=== PATIENT | male | born 1955 | race African-American/Black ===

== ENCOUNTER 2017-01-27 01:03 | Inpatient (IN) | payer OTHER ==
[~2017-01-27] VITALS: Ht 170.2 cm; Wt 96.5 kg
[2017-01-27] VITALS (8 sets, daily range): BP systolic 117–182; BP diastolic 70–106
[~2017-01-27 01:03] MED LIST: ALPR0.5T11 PO; ASPI-860 PO; CLPD75T PO; INSU100V32 SC; LSNP10T PO; METF500T4 PO; NO HOME MEDICATIONS; NO LIST; SMV10T PO
--- OUTSIDE RECORDS SUMMARY | 2017-01-27 01:08 | XMS REPORT | Continuity of Care Document ---
Author Author [facility] Address Unknown Phone Unavailable Allergies Active Description Code Type Severity Reaction Onset Reported/Identified Relationship to Patient Clinical Status Yes No Known Drug Allergies [id number] Drug Allergy Unknown N/ A 12/01/2013 Medications Problems Date Dx Coded Attending Type Code Diagnosis Diagnosed By 12/01/2013 BALAJI FAUST MD R Ot 250.00 12/01/2013 BALAJI FAUST MD Ot 401.9 12/01/2013 BALAJI FAUST MD Ot 434.91 12/01/2013 BALAJI FAUST MD R Ot 729.89 12/01/2013 BALAJI FAUST MD Ot V15.82 12/01/2013 BALAJI FAUST MD Ot V58.67 05/12/2014 CORTEZ DAN, CHRISTY L Ot 727.09 05/12/2014 CORTEZ DAN, CHRISTY L Ot 729.5 05/08/2015 BALAJI FAUST MD Ot 434.91 05/09/2015 KAT DAN, EMI Ramos Ot 250.00 DIAB JUAN DIEGO WO COMPL, TYPE II OR UNSPEC TY 05/09/2015 EMI STEPHENS MD Ot 401.9 HYPERTENSION NOS 05/09/2015 EMI STEPHENS MD Ot 438.89 OTH LATE EFFECT-CEREBROVASCULAR DISEASE 05/09/2015 EMI STEPHENS MD Ot 729.89 MUSCSKEL SYMPT LIMB NEC 05/09/2015 EMI STEPHENS MD Ot V58.67 LONG-TERM (CURRENT) USE OF INSULIN 05/22/2015 BALAJI FAUST MD Ot 434.91 09/04/2016 Ot Z53.20 PROC/TRTMT NOT CRD OUT BEC PT DECISION F 09/08/2016 Ot Z53.20 PROC/TRTMT NOT CRD OUT BEC PT DECISION F Procedures Results Encounters ACCT No. Visit Date/Time Discharge Status Pt. Type Provider Facility Loc./Unit Complaint [id number] 05/09/2015 00:07:00 2014 20:01:00 DIS Inpatient KAT DAN, [facility] MED/SURG DX: LEFT LEG WEAKNESS [id number] 05/12/2014 00:59:00 2013 01:50:00 DIS Emergency CORTEZ DAN, [facility] ED [id number] 12/01/2013 23:24:00 2013 23:59:59 CLS Outpatient GOVIND DAN, [facility] EMS [id number] 12/01/2013 20:45:00 2013 23:23:00 DIS Emergency GOVIND DAN, [facility] ED [id number] 09/02/2016 11:57:00 ACT Outpatient [facility] EMS EMS REFUSAL
--- OUTSIDE RECORDS SUMMARY | 2017-01-27 01:11 | XMS REPORT | Continuity of Care Document ---
Author Author [facility] Address Unknown Phone Unavailable Allergies Active Description Code Type Severity Reaction Onset Reported/Identified Relationship to Patient Clinical Status Yes No Known Drug Allergies [id number] Drug Allergy Unknown N/ A 12/01/2013 Medications [...] Status Pt. Type Provider Facility Loc./Unit Complaint [id number] 05/09/2015 00:07:00 2014 20:01:00 DIS Inpatient KAT DAN, [facility] MED/SURG DX: LEFT LEG WEAKNESS [id number] 05/12/2014 00:59:00 2013 01:50:00 DIS Emergency CORTEZ DAN, [facility] ED [id number] 12/01/2013 23:24:00 2013 23:59:59 CLS Outpatient GOVIND DAN, [facility] EMS [id number] 12/01/2013 20:45:00 2013 23:23:00 DIS Emergency GOVIND DAN, [facility] ED [id number] 09/02/2016 11:57:00 ACT Outpatient [facility] EMS EMS REFUSAL
--- NOTE | 2017-01-27 01:24 | NUR ---
STATED ISN'T TAKING ANY OF HIS MEDS AT ALL. LAST TIME WAS 2-3 MO AGO, WAS ON PLAVIX FOR THE CVA AND INSULIN
[2017-01-27] MEDS ORDERED: SODIUM CHLORIDE FLUSH 3 ML SYR IV ONE (01:25)
[2017-01-27] MEDS ORDERED: NS IV 500 ML 500 ML IV SCH (01:25)
[2017-01-27] MEDS: SODIUM CHLORIDE FLUSH 10 ML SYR IV PRN ×2 (01:37→03:01)
--- NOTE | 2017-01-27 01:39 | NUR ---
[facility]
[2017-01-27] MEDS ORDERED: ATOR40TA59 PO (01:44)
[2017-01-27] MEDS ORDERED: METF500T4 PO (01:44)
[2017-01-27] MEDS ORDERED: INSU100V5 SC (01:44)
[2017-01-27] MEDS ORDERED: GLIP10TA13 PO (01:44)
[2017-01-27] MEDS ORDERED: LSNP20T PO (01:44)
[2017-01-27 01:56] LABS: BASOPHILS % (AUTO) 0 % (0-2); EOSINOPHILS # (AUTO) 0.1 10^3uL; EOSINOPHILS % (AUTO) 1 % (0-4); LYMPHOCYTES # (AUTO) 2.1 X10^3; MEAN CORPUSCULAR HGB CONC 33.3 g/dL (31.0-37.0); MEAN CORPUSCULAR VOLUME 81 FL (80-100); MEAN PLATELET VOLUME 11.9 FL (6.0-9.5); MONOCYTES # (AUTO) 0.9 X10^3; MONOCYTES % (AUTO) 10 % (3-11); NEUTROPHILS # (AUTO) 5.9 X10^3; NEUTROPHILS % (AUTO) 65 % (51-67); PLATELET COUNT 192 10^3uL (150-450); WHITE BLOOD COUNT 9.05 10^3uL (4.0-11.0)
[2017-01-27 02:03] LABS: ALKALINE PHOSPHATASE 127 U/L (38-126); ANION GAP 14.1 MEQ/L (3-15); BUN/CREATININE RATIO 13 (10-20)
[2017-01-27 02:04] LABS: ALBUMIN 4.4 g/dL (3.4-5.0); CALCULATED IONIZED CALCIUM 3.8 mg/dL (3.8-4.6); CREATINE KINASE 77 U/L (55-170); TOTAL PROTEIN 8.1 g/dL (6.4-8.5)
[2017-01-27] MEDS ORDERED: LABETALOL HCL 20 MG/4 ML VIAL IV ONE (02:50)
[2017-01-27] MEDS ORDERED: INSULIN LISPRO 1 UNIT/0.01 ML (HUMALOG) DOSE SC ONE (02:55)
[2017-01-27] MEDS ORDERED: DEXTROSE ORAL GEL (GLUTOSE 40%) 15 GM TUBE PO PRN ×2 (03:00→09:25)
[2017-01-27] MEDS ORDERED: ONDANSETRON 2 MG/ML (Z0FRAN) 2 ML VIAL IV PRN (03:00)
[2017-01-27] MEDS ORDERED: DEXTROSE 50% 25 GM/50 ML SYRINGE IV PRN ×2 (03:00→09:25)
[2017-01-27] MEDS ORDERED: ACETAMINOPHEN 325 MG TAB (TYLENOL) PO PRN (03:00)
[2017-01-27] MEDS ORDERED: GLUCAGON EMERGENCY 1 MG/KIT IM PRN ×2 (03:00→09:25)
[2017-01-27] MEDS ORDERED: LABETALOL HCL 20 MG/4 ML VIAL IV PRN (03:05)
--- NOTE | 2017-01-27 03:30 | NUR ---
Patient arrived via cart accompanied by Jessie MENDOZAtrackman, transferred to bed w/ cane and standby assist x 2, movement slow states trouble with movement of left lower extremity, speech slow and delayed at times, A&O x 3. Changed into gown, poor hygiene of person, provides own care at home with medication etc, respirations even non labored on room air. Continue with admission process, charted
[2017-01-27] MEDS ORDERED: lisINopril 20 MG (PRINIVIL) TABLET ONE (04:22)
--- NOTE | 2017-01-27 04:36 | History and Physical (E) ---
History & Physical CC: right leg weakness HPI: Patient is a 61 y/o male who has a history of a prior left sided CVA. The patient admits to medication non compliance and has not been taking his diabetic medications or anti hypertensive medications for the past several weeks. The patient saw the [facility] on 01/15 and his medications were re started. He has not received them in the mail yet. 2 hours prior to arrival to the ED the patient had onset of right leg weakness. The patient states that he felt as if he were having a stroke. Upon arrival to the ED his symptoms were resolved per his report. The patient has significantly hypertensive and was treated with lopresor IV. The CT head was unremarkable as was his lab work. At this time the patient will be admitted into the ICU for further management of his hypertensive emergency with TIA. A review of the medical records indicate that the patient had a very similar event in 2011. PMH: left sided CVA, HTN, DM2, dyslipidemia PSH; bilateral carpal tunnel repair SHx; , has girlfriend, no tobacco, no alcohol, retired, FHx: mother from multiple myelopma Meds: atorvastatin, glipizide,levemir,lisinipril,metformin, aspirin allergy: NKDA ROS never had a headache,no change in vision, no difficulty swallowing, no difficulty speaking, no neck or jaw pain, no chest pain, no shortness of breath , no cough, no abdomen pain, no nausea or vomiting, no change in BM, no urine symptoms, no increased edema, chronic left sided weakness which primarily affects left lower leg. left upper extremity has regained almost all function, no right leg or arm symptoms, never had paresthesia, 10 point ROS otherwise neg except for described above. PE: 177/118, pulse 70, rr16 sats 90% RA, afebrile WDWN male in mild distress alert and oriented x 4 EOMI, sclera non icteric, difficult to determine pupil reactivity but both appear symetrical neck supple, no jvd Lungs diminished but no wheezes Heart RRR no murmur abd is soft non tender per nursing ext with tr edema neuro examination strength left upper 4/5, left lower 2/5 right upper 4pluts/5 right lower 4/5 sensor grossly intact symmetrical Lab WBC 9, Hg 13.2 plt 192 INR 1.1 na 143, K 3.4 HCO3 27 BUN11 C.9 glucose 315 A1C 12.1 BAL 0, troponin .[address] head without acute changes pCXR no acute process Impression/Plan 1. TIA acute POA: right lower extremity affected. secondary to hypertension , see below, currently resolved. not on medications asa, statin, reassess in the am. will need to strongly consider MR of brain in the am with carotid US and echocardiogram. Even though precipitated by hypertensive there is a chance of a flow limiting lesion in carotid that need to be addressed. Admit to IcU with frequent neuor checks 2. HTN emergency acute POA: patient with neuro findings resolved. For now restart BURT inhibitor. IV b debi prn SBP greater than 180 of DBP greater than 90. Need not to drop blood pressure greatly or will precipitate additional neurological events. 3. DM2 chronic POA: poor control as represented by elevated A1C. correctional plan overnight and restart home meds in the am. 4. hypokalemia acute POA: replace and recheck 5. dyslipidemia chronic POA: continue statin and check fasting lipid panel 6. DVT ppx; SCD full inpatient admission to ICU. Allergies/Home Medications Allergies: Coded Allergies: No Known Drug Allergies (Unverified , 12/01/13) Reported Home Medications Scheduled Aspirin (Aspirin) 81 MG PO DAILY (Reported) Atorvastatin Calcium (Atorvastatin Calcium) 20 MG PO HS (Reported) Glipizide (Glipizide) 10 MG PO BID (Reported) Insulin Detemir (Levemir) 30 UNIT SC BID (Reported) Lisinopril (Lisinopril) 10 MG PO DAILY (Reported) Metformin HCl (Metformin HCl) 1,000 MG PO BID (Reported) Discontinued Medications Alprazolam (Alprazolam) 0.5 MG PO QID (Reported) Discontinued Reason: Update list Clopidogrel Bisulfate (Clopidogrel) 75 MG PO DAILY Discontinued Reason: Update list Insulin Glargine,Hum.rec.anlog (Lantus) 20 UNIT SC HS Discontinued Reason: Update list Lisinopril (Lisinopril) 10 MG PO BID (Reported) Discontinued Reason: Dose changed Metformin HCl (Metformin HCl) 500 MG PO BID (Reported) Discontinued Reason: Update list Simvastatin (Simvastatin) 10 MG PO HS Discontinued Reason: Update list Copies to: End of Report . SHANNON ASTORGA MD January 27, 2017 04:36
--- NOTE | 2017-01-27 06:19 | Diagnostic Imaging Report ---
PROCEDURE: CT head without contrast. TECHNIQUE: Multiple contiguous axial images were obtained through the brain without the use of intravenous contrast. INDICATION: Right leg weakness. COMPARISON STUDIES: CT scan of the head from 05/08/15. FINDINGS: Examination demonstrates minimal atrophy. No mass effect, midline shift, hemorrhage or extra-axial fluid collections are present. An old lacunar infarct is seen in the right side in the region of the posterior limb of the internal capsule or possibly the anterior aspect of the thalamus. Bone windows demonstrate normal ossification. No fluid is seen in the mastoid air cells or visualized portions of the paranasal sinuses. Some microcalcifications are seen in the subcutaneous tissues of the forehead probably from Botox injections. IMPRESSION: 1. No acute findings are present. 2. An old lacunar infarct is present with minimal atrophy. Dictated by: Dictated on workstation # [id number]
--- NOTE | 2017-01-27 06:43 | Diagnostic Imaging Report ---
INDICATION: Right leg weakness. COMPARISON: 05/08/2015. FINDINGS: Single view examination of the chest fails to reveal evidence of active parenchymal pathology or pleural effusion. The cardiac silhouette is normal. IMPRESSION: Negative chest. No significant change since previous exam. Dictated by: Dictated on workstation # [id number]
--- NOTE | 2017-01-27 06:45 | NUR ---
Sitting up in bed - "I feel better in my R leg than when I came in" - reports slept poor "I am normally a night person"
[2017-01-27] MEDS: PANTOPRAZOLE 40 MG (PROTONIX) TAB PO SCH (06:51)
[2017-01-27 06:57] LABS: BASOPHILS % (AUTO) 0 % (0-2); EOSINOPHILS # (AUTO) 0.2 10^3uL; EOSINOPHILS % (AUTO) 2 % (0-4); LYMPHOCYTES # (AUTO) 2.1 X10^3; MEAN CORPUSCULAR HEMOGLOBIN 27.3 PG (26.0-34.0); MEAN CORPUSCULAR HGB CONC 33.4 g/dL (31.0-37.0); MEAN CORPUSCULAR VOLUME 82 FL (80-100); MEAN PLATELET VOLUME 11.9 FL (6.0-9.5); MONOCYTES # (AUTO) 0.9 X10^3; MONOCYTES % (AUTO) 10 % (3-11); NEUTROPHILS # (AUTO) 5.9 X10^3; NEUTROPHILS % (AUTO) 65 % (51-67); PLATELET COUNT 194 10^3uL (150-450); WHITE BLOOD COUNT 9.03 10^3uL (4.0-11.0)
[2017-01-27 07:07] LABS: ANION GAP 14.3 MEQ/L (3-15)
[2017-01-27] MEDS ORDERED: INSULIN LISPRO 1 UNIT/0.01 ML (HUMALOG) DOSE SC SCH (07:30)
--- NOTE | 2017-01-27 07:30 | NUR ---
See ICU assessment --> HX of stroke affecting L leg walks c cane - "My R leg started feeling like I was having a stroke, so I came to the ED" - reports did not take po meds for approx 5-6 months "I was on vacation in [place]" - unkept, strong body odor, copious amounts of dry flaking skin
--- NOTE | 2017-01-27 07:45 | NUR ---
Up to chair for breakfast - very slow process - patient able to complete all movement by himself - talks slowly - "I don't have any pain" "I'd love a cup of coffee"
--- NOTE | 2017-01-27 08:28 | NUR ---
NUTRITION ASSESSMENT Level 1 Patient: Carrington Larsen Age/Sex: 61/M Date Screened: 01-27-17 Weight: 211.2#/96 kg Height: 67 inches Primary Diagnosis: TIA Diet Order: small diabetic Relevant labs: glucose 145 (admitted with 315), Hgb A1c 12.1, triglycerides 107, cholesterol 200, LDL 139, HDL 40, TSH 0.82 Food allergies: N Nutrition Assessment Criteria Age over 80: N Body Mass Index (BMI) under 19: N Admission Screening Indicates Risk? 3 points Moderate/High Risk Diagnosis: 3 points TPN or PPN: N NPO or clear liquid diet: N Serum Glucose <70 or >180: 3 points Hgb A1c >6.7: 3 points Total: 12 points Risk Screen: __ Patient at low nutritional risk based on available data; reevaluate in 5-7 days __ Patient at moderate nutritional risk based on available data; reevaluate in 3-5 days _X_ Patient at high nutritional risk; complete Nutrition Assessment within 48 hours of admission.
[2017-01-27] MEDS ORDERED: NS FLUSH 3 ML PRN IV (08:30)
[2017-01-27] MEDS ORDERED: NS FLUSH 10 ML PRN IV (08:30)
--- NOTE | 2017-01-27 09:00 | NUR ---
Dr Torres in room
[2017-01-27] MEDS: NS FLUSH 3 ML DAILY IV SCH (09:18)
[2017-01-27] MEDS: ASPIRIN 81 MG CHEW (LOW-DOSE) PO SCH (09:18)
[2017-01-27] MEDS: lisINopril 10 MG (PRINIVIL) TABLET PO SCH (09:18)
[2017-01-27] MEDS ORDERED: INSULIN REGULAR 1 UNIT/0.01 ML DOSE IV ONE (09:25)
[2017-01-27] MEDS ORDERED: INSULIN REGULAR VIAL 100 UNIT in SODIUM CHLORIDE 100 ML IV PRN (09:25)
--- NOTE | 2017-01-27 10:10 | NUR ---
Up to sink side to void per urinal - 350 mL dark yellow clear - brushed teeth - back to chair - watching TV
--- NOTE | 2017-01-27 10:39 | NUR ---
NUTRITION ASSESSMENT Level II Patient: Carrington Larsen Age/Sex: 61/M Date Assessed: 01-27-17 ASSESSMENT Pertinent History: Patient admitted with TIA and screened at high nutritional risk secondary to elevated blood glucose/A1c with reports of not taking his insulin or meds x 2-3 months. PMHx includes CVA, HTN, diabetes and dyslipidemia. He was diagnosed with diabetes in 1999. He lives at home and denied difficulty swallowing or n/v. Last documented weight was 217# in 2014. Meds/Nutrition: Humalog, Protonix Weight: 211.2#/96 kg Height: 67 inches Body Mass Index (BMI): 33.1 [place] Body Weight : 148#/67.2 kg % IBW: 142% GASTROINTESTINAL Appetite: stated good on admission Diet Order: small diabetic Unintentional loss of >10 lbs. in 3 months: N Difficult to chew/swallow: N Diabetes: Yes Relevant Labs: glucose 145 (315 on admission), Hgb A1c 12.1, triglycerides 107, cholesterol 200, LDL 139, HDL 40, TSH 0.82 Calculations for Nutritional Assessment Estimated calorie needs: 22-25 kcals/kg = 2,100-2,400 kcals (minus 500 for weight loss) Estimated protein needs: 1.0-1.2 g/kg ABW = 74-89 g./day DIAGNOSIS 1. Nutrition Diagnosis: Altered nutrition-related lab values (glucose) related to endocrine dysfunction and failure to take meds as evidenced by reports of not taking insulin x 2-3 months with admitting blood glucose >300 and Hgb A1c 12.1. NUTRITIONAL INTERVENTION Goal: Patient will receive adequate nutrition to meet his needs. Plan: Recommend medium diabetic diet to better meet patients nutritional needs while still controlling CHO intake. Recommend minimum 74 g. protein/day as calculated above. Outpatient nutrition counseling or DSME is recommended for help with dietary and medication compliance; will follow with physician re: plan of care. MONITORING & EVALUATION _X_ Monitor patients menu selections _X_ Monitor patients food intake per nursing notes __ Monitor NPO/clear liquid days _X_ Monitor lab values __ Monitor I&O __ Other
--- NOTE | 2017-01-27 11:00 | NUR ---
Condition report called to Tsering MENDOZA
--- NOTE | 2017-01-27 11:00 | NUR ---
Accu check 256
[2017-01-27] MEDS: INSULIN LISPRO 1 UNIT/0.01 ML (HUMALOG) DOSE SC SCH ×3 (11:10→21:09)
--- NOTE | 2017-01-27 11:15 | NUR ---
Patient transfers to room 317 via wheelchair from ICU accompanied by Sherry Hernandez RN. Alert and oriented X3. Denies pain but reports weakness in right left. In shower at this time.
--- NOTE | 2017-01-27 11:15 | NUR ---
Humalog 7 units LLQ SQ as ordered per SSI
--- NOTE | 2017-01-27 11:20 | NUR ---
To shower per w/c
[2017-01-27] MEDS ORDERED: METF1000 PO (12:25)
[2017-01-27] MEDS ORDERED: ASPI325T4 PO (12:25)
--- NOTE | 2017-01-27 12:30 | NUR ---
MED REC COMPLETE--current med list obtained from patient's most recent visit with doctor at [facility] (01/15/17). Patient has been off of all meds for 2-3 months.
--- NOTE | 2017-01-27 13:03 | Progress Note (E) ---
Progress Note HPI: Patient is a 61 y/o male who has a history of a prior left sided CVA. The patient admits to medication non compliance and has not been taking his diabetic medications or anti hypertensive medications for the past several weeks. The patient saw the [facility] on 01/15 and his medications were re started. He has not received them in the mail yet. 2 hours prior to arrival to the ED the patient had onset of right leg weakness. The patient states that he felt as if he were having a stroke. Upon arrival to the ED his symptoms were resolved per his report. The patient has significantly hypertensive and was treated with lopressor IV. The CT head was unremarkable as was his lab work. At this time the patient will be admitted into the ICU for further management of his hypertensive emergency with TIA. A review of the medical records indicate that the patient had a very similar event in 2011. Above reviewed from Admission: S: Carrington was seen in the ICU- doing better, feels better- eating breakfast without any trouble. No new complaints O: I & O Past 24 hrs 01/27/17 07:00 Intake Total 25 ml Output Total 0 ml Balance 25 ml Intake Oral 25 ml Output Urine Total 0 ml Vital Signs Date Time Temp Pulse Resp B/P Pulse Ox O2 Delivery O2 Flow Rate FiO2 01/27/17 12:00 116 01/27/17 09:00 98.4 16 149/81 98 Room air Awake and alert in NAD- up to chair doing better -oriented x 4 EOMI, sclera non icteric, difficult to determine pupil reactivity but both appear symetrical neck supple, no jvd Lungs diminished but no wheezes Heart RRR no murmur abd is soft non tender per nursing ext with tr edema neuro examination strength left upper 4/5, left lower 2/5 right upper 4pluts/5 right lower 4/5 sensor grossly intact symmetrical Laboratory Results Past 24 Hrs 01/27/17 01:45: Alanine Aminotransferase (ALT/SGPT) 15, Albumin 4.4, Albumin/Globulin Ratio 1.189, Alkaline Phosphatase 127, Anion Gap 14.1, Aspartate Amino Transf (AST/ SGOT) 12, BUN/Creatinine Ratio 13, Basophils # (Auto) 0.0, Basophils (%) (Auto) 0, Blood Urea Nitrogen 11, Calcium Level 9.4, Calcium/Ionized Calcium Ratio 3.8 , Calculated Osmolality 285, Carbon Dioxide Level 27, Chloride Level 104, Creatine Kinase MB 0.9, Creatinine 0.85, Eosinophils # (Auto) 0.1, Eosinophils ( %) (Auto) 1, Estimat Glomerular Filtration Rate 110.9, Estimated GFR (Non- 91.6, Glucose Level 315, Hematocrit 39.60, Hemoglobin 13.2, Hemoglobin A1c 12.1, Lymphocytes # (Auto) 2.1, Lymphocytes (%) (Auto) 23, Mean Corpuscular Hemoglobin 27.0, Mean Corpuscular Hemoglobin Concent 33.3, Mean Corpuscular Volume 81, Mean Platelet Volume 11.9, Monocytes # (Auto) 0.9, Monocytes (%) (Auto) 10, UN-Whm-N-Type Natriuretic Peptide 82, Neutrophils # ( Auto) 5.9, Neutrophils (%) (Auto) 65, Platelet Count 192, Potassium Level 3.4, Prothromb Time International Ratio 1.1, Prothrombin Time 11.9, Red Blood Count 4.88, Red Cell Distribution Width 12.6, Serum Alcohol < 10.0, Sodium Level 142, Thyroid Stimulating Hormone (TSH) 0.82, Total Bilirubin 0.6, Total Creatine Kinase 77, Total Protein 8.1, Troponin I 0.012, White Blood Count 9.05 01/27/17 06:40: Anion Gap 14.3, BUN/Creatinine Ratio 16, Basophils # (Auto) 0.0, Basophils (%) ( Auto) 0, Blood Urea Nitrogen 12, Calcium Level 9.2, Carbon Dioxide Level 28, Chloride Level 107, Creatinine 0.76, Eosinophils # (Auto) 0.2, Eosinophils (%) ( Auto) 2, Estimat Glomerular Filtration Rate 126.2, Estimated GFR (Non- 104.3, Glucose Level 145, Hematocrit 38.60, Hemoglobin 12.9, Lymphocytes # (Auto) 2.1, Lymphocytes (%) (Auto) 23, Mean Corpuscular Hemoglobin 27.3, Mean Corpuscular Hemoglobin Concent 33.4, Mean Corpuscular Volume 82, Mean Platelet Volume 11.9, Monocytes # (Auto) 0.9, Monocytes (%) ( Auto) 10, Neutrophils # (Auto) 5.9, Neutrophils (%) (Auto) 65, Platelet Count 194, Potassium Level 3.5, Red Blood Count 4.72, Red Cell Distribution Width 12.6 , Sodium Level 146, White Blood Count 9.03, Cholesterol Level 200, Cholesterol/ HDL Ratio 5.0, HDL Cholesterol 40, LDL Cholesterol, Calculated 139, Triglycerides Level 107, VLDL Cholesterol, Calculated 21 CT head without acute changes CXR no acute process Impression/Plan 1. TIA acute- right lower extremity affected. secondary to hypertension , - will check Carotid US and Echo. Neuro Checks have been unremarkable. 2. HTN emergency- patient had neuro findings on admit but have since resolved. 3. DM2 chronic POA: poor control as represented by elevated A1C. 4. Hypokalemia - replaced 5. dyslipidemia chronic POA: continue statin and check fasting lipid panel 6. DVT ppx; SCD Code Status- Full Code P: Will monitor him closely- can go to the floor today, tele, see orders. Melissa Childers APRN January 27, 2017 13:03
--- NOTE | 2017-01-27 15:00 | NUR ---
[employer] tech in room for echo and carotid ultrasound.
--- NOTE | 2017-01-27 16:09 | NUR ---
20g IV in right hand becomes dislodged in shower. Catheter intact. No redness or swelling noted at insertion site. 22g IV initiated on first attempt by this nurse into right hand. Patient tolerates well. Resting in bed. Denies pain or distress. BP at this time 123/70. Will continue to monitor.
--- NOTE | 2017-01-27 16:30 | Diagnostic Imaging Report ---
PROCEDURE: US Carotid Duplex Bilateral. INDICATION: History of type 2 diabetes and hypertension. Transient ischemic attack. TECHNIQUE: Multiple real-time grayscale images were obtained over the carotid arteries in various projections bilaterally. Additional duplex Doppler and color Doppler images were also obtained. CORRELATION STUDY: 05/09/2015. FINDINGS: Color and grayscale images demonstrate what appears to be at least moderate diffuse intimal thickening throughout the common carotid arteries as well as internal and external carotid arteries. There is some irregular plaque including calcified plaque, particularly at the proximal aspect of the internal carotid arteries. A visualized area of stenosis however does not appear to be present. There is no significantly increased velocity to suggest a focal area of stenosis. On the right, maximum velocity in the internal carotid artery is a 92 cm/s with an ICA/CCA ratio of 0.63. On the left, maximum velocity is 89 cm/s with an ICA/CCA ratio of 0.81. External carotid arteries are patent. Vertebral arteries with antegrade direction of flow. There is note made of prominent bilateral cervical lymph nodes, left slightly greater than right, nonspecific. IMPRESSION: 1. Moderate combination of diffuse intimal thickening along with irregular heterogeneous including calcified plaque present. However, no findings to suggest hemodynamically significant stenosis or flow limitations at this time. Periodic followup survey assessment would be recommended. 2. Incidental note made of prominent bilateral cervical lymph nodes, left slightly greater than right, nonspecific. Dictated by: Dictated on workstation # [id number]
--- NOTE | 2017-01-27 18:32 | NUR ---
Patient sitting up at edge of bed feeding self supper. Continues to report right leg weakness and "really has to think about it when I move". Denies pain. Accucheck prior to supper = 206, SSI provided. Agrees to call when needing assist with ambulation. Call light in reach.
--- NOTE | 2017-01-27 20:00 | NUR ---
Patient ambulating slowly in room, attempting to get to his cane. Cane provided for him and stand by assist to the bathroom. Gait very slow. Has right sided weakness from previous CVA. Reminded patient that he needs to call for assistance to get to the bathroom, which he agrees to do. Call light within reach.
--- NOTE | 2017-01-27 20:11 | NUR ---
Accu Check 295 mg/dl/ SSI provided as ordered. Having small protein snack before sleep.
[2017-01-27] MEDS: ATORVASTATIN 10 MG (LIPITOR) TABLET PO SCH (20:39)
[2017-01-27] MEDS ORDERED: ATORVASTATIN 40 MG (LIPITOR) TABLET PO SCH (21:00)
[2017-01-28] VITALS (7 sets, daily range): BP systolic 108–166; BP diastolic 53–87
[2017-01-28 06:11] LABS: BASOPHILS % (AUTO) 1 % (0-2); EOSINOPHILS # (AUTO) 0.2 10^3uL; EOSINOPHILS % (AUTO) 3 % (0-4); LYMPHOCYTES # (AUTO) 2.6 X10^3; MEAN CORPUSCULAR HEMOGLOBIN 27.3 PG (26.0-34.0); MEAN CORPUSCULAR HGB CONC 33.2 g/dL (31.0-37.0); MEAN CORPUSCULAR VOLUME 82 FL (80-100); MEAN PLATELET VOLUME 11.5 FL (6.0-9.5); MONOCYTES # (AUTO) 0.7 X10^3; MONOCYTES % (AUTO) 9 % (3-11); NEUTROPHILS # (AUTO) 4.3 X10^3; NEUTROPHILS % (AUTO) 54 % (51-67); PLATELET COUNT 175 10^3uL (150-450); WHITE BLOOD COUNT 7.86 10^3uL (4.0-11.0)
[2017-01-28] MEDS: PANTOPRAZOLE 40 MG (PROTONIX) TAB PO SCH (06:11)
[2017-01-28] MEDS: INSULIN LISPRO 1 UNIT/0.01 ML (HUMALOG) DOSE SC SCH ×4 (06:11→20:50)
--- NOTE | 2017-01-28 06:13 | NUR ---
Rested at long intervals tonight. Telemetry shows NSR. Patient denies any discomforts. Walked to chair scale for daily weight. Drags left leg. Takes his time and is cautious not to fall. Uses cane for safety. Call light within reach. Reminded to use light for assistance to the bathroom. Cooperative with cares.
--- NOTE | 2017-01-28 06:17 | NUR ---
Accu Check this morning is 172. No SSI needed.
[2017-01-28 07:04] LABS: MAGNESIUM* 2.1 mg/dL (1.6-2.3)
--- NOTE | 2017-01-28 08:30 | NUR ---
Pt resting in chair at this time. SL intact. Denies pain. States he feels like he is getting somewhat stronger. Skin warm, dry, intact. Resprs nonlabored, even on 3L NC. Pt denies needs.
--- NOTE | 2017-01-28 08:42 | OT Therapy Evaluation (E) ---
POC Plan of Care Problems Identified: ADLs, Balance, Lt UE Strength, Rt UE Strength, Safety Awareness, Sensation Additional Problems Pt demonstrates limited knowledge of insulin administration. Plan: Evaluation-OT, ADL/Self Care Management, Therapy Exercises, Therapy Activities, Pt/Family/Staff Education Frequency of OT: Five times weekly Duration of OT: Other Therapy to Include: ADL training, Balance with ADLs, Pt/family education, Therapeutic activities, UE strengthing Discharge Recommendations: TCU/Skilled NH Pt would benefit from skilled occupational therapy services to improve independence with self care tasks for safe return home. Additionally to provide education to pt and improve performance with medication management. Pt. Aware of Dx and Prognosis: Yes Pt. Aware of Risk & Benefit: Yes Goals: Discussed with patient Short Term Goals STG Time Frame: 2 Days Will Perform Grooming: With Setup/SBA Will Dress Upper Extremity: With Setup/SBA Will Dress Lower Extremity: With Setup/SBA Will Perform Funct Transfer: With Setup/SBA STG #1 Pt will participate in 15 min of ther-ex with 5 or less rest breaks. Residential Goals LTG Time Frame: 4 Days Will Dress Upper Extremity: Independently Will Dress Lower Extremity: Independently Will do Tub/Shower Transfer: Independently Will Bathe Self: Independently Will do Toilet Transfers: Independently Will do Toilieting: Independently LTG # 1 Pt will participate in 5 minute functional standing activity with demonstration of good balance and modified independence. LTG # 2 Pt will independently verbalize strategies to improve performance with medication management. Inital Evaluation/General Service Date/Time 01/28/17, 08:28 Primary Diagnosis: (1) TIA (transient ischemic attack) ICD Code: G45.9 Treatment Diagnosis: (1) Weakness ICD Code: R53.1 Onset Date: 01/27/17 Start of Care Date: January 28, 2017 Precaution/Isolation: Standard Precautions Fall Level: High Risk 51 or greater Resuscitation Status: Full Code Reason for Referral: Evaluation and Treat Pertinent Medical History: Other (L sided CVA, HTN, DM2, dyslipidemia ) Pain Level: 0 Oxygen Needed: Room air O2 liters/minute: 0 Rehabilitation Potential: Good Potential Based On Patient's motivation to return home. Rational for Skilled Treatment: Allow return to home, Maximize Safety Living Status Prior to Admit: With Spouse (Lives in a level ground apartment with girlfriend ) Prior Level of Function: Independent ADLs Prior to onset, pt was independent with self care tasks. Pt shares responsibilities with girlfriend of cooking, cleaning, and grocery shopping. Pt drives. Pt reports have a medication container for medications, but went on vacation and was not taking medication. Additionally pt reports not taking insulin or watching diet. Plans Following Discharge: Return Home Support Persons: Significant Other Entry Into Home: Level Entry Assist Devices: SPC Current Function Assessment Mental Status Patient Orientation: Person, Place, Time, Situation Mental Status: Alert Cognition Attention: Intact Memory: Intact Safety/Judgement: Intact Visual/Perceptual Skills Glassess: No Hearing: Impaired Hand Dominance Hand Dominance: Right ROM/Strength Range of Motion : ROM: WNL Strength Comment RUE 4-/5, LUE 4-/5 Neurological Coordination: Minimally impaired Balance: Stands with device, Stands with assistance Endurance Pt reports lack of sensation and feeling in LLE secondary to previous stroke. Bed Mobility/Transfers Bed Mobility: SBA Supine from Sit: CGA Sit to Stand: CGA Chair Transfer: CGA Sitting Balance: WFL ADLs Hand : Feeding Self: Independent Grooming: Grooming Status: Setup/SBA (In sitting), CGA (In standing ) Dressing Dressing: Minimum assist Bathing Shower/Bench Transfer Ability: CGA Bathing- Type of Assistance: CGA Toileting Toilet Hygiene: CGA Toilet Transfer Ability: CGA CPT/G Codes Time In: 8:03 Time Out: 8:23 Total Minutes: 20 (10/02 eval) CPT Codes: 33522 Eval< 20 minutes (10/02 ) DOMINIC LAM OT January 28, 2017 08:42
--- NOTE | 2017-01-28 08:42 | Progress Note-A/P (E) ---
Progress Note Subjective Subjective alert this a.m. ot present and evaluating at this time . No new c.c. Objective VS Vital Signs Date Time Temp Pulse Resp B/P Pulse Ox O2 Delivery O2 Flow Rate FiO2 01/28/17 07:35 97.4 79 17 129/71 98 Room air I&O I & O Cumulative 01/27/17 01/28/17 Cumulative From/Thru 19:00 07:00 01/27/17 01:07 - 01/28/17 06:15 Intake Total 990 ml 400 ml 1415 ml Output Total 350 ml 400 ml 750 ml Balance 640 ml 0 ml 665 ml Current Medications Current Medications Acetaminophen 650 mg Q6H PRN PO; Start 01/27/17 at 03:00 Pantoprazole 40 mg DAILY@07 PO Last administered on 01/28/17 06:11; Admin Dose 40 MG; Start 01/27/17 at 07:00 Ondansetron HCl 4 mg Q6H PRN IV; Start 01/27/17 at 03:00 Lisinopril 10 mg DAILY PO Last administered on 01/27/17 09:18; Admin Dose 10 MG ; Start 01/27/17 at 09:00 Aspirin 81 mg DAILY@0900 PO Last administered on 01/27/17 09:18; Admin Dose 81 MG; Start 01/27/17 at 09:00 Dextrose 15 gm Q15M PRN PO; Start 01/27/17 at 03:00 Dextrose If NPO and glucose is less t... PRN PRN IV; Start 01/27/17 at 03:00 Glucagon 1 mg PRN PRN IM; Start 01/27/17 at 03:00 Labetalol HCl 10 mg Q4H PRN IV; Start 01/27/17 at 03:05 Atorvastatin Calcium 20 mg HS PO Last administered on 01/27/17 20:39; Admin Dose 20 MG; Start 01/27/17 at 21:00 Sodium Chloride 3 ml DAILY IV Last administered on 01/27/17 09:18; Admin Dose 3 ML; Start 01/27/17 at 09:00 Sodium Chloride 3 ml UD PRN IV; Start 01/27/17 at 08:30 Sodium Chloride 10 ml UD PRN IV; Start 01/27/17 at 08:30 Dextrose 15 gm Q15M PRN PO; Start 01/27/17 at 09:25 Dextrose If NPO and glucose is less t... PRN PRN IV; Start 01/27/17 at 09:25 Glucagon 1 mg PRN PRN IM; Start 01/27/17 at 09:25 Insulin Human Lispro SUPPLEMENTAL SCALE QIDACHS SC Last administered on t 21:09; Admin Dose 7 UNIT; Start 01/27/17 at 11:30 General Awake, alert, oriented to person, place, and situation. NAD at present HEENT EOMI, PERRL CV RRR, S1 S2 audible Lungs Clear No rales, rhonchi or wheezes Abdomen Soft non distended, no tenderness to palpation, no masses Extremities No edema . Movement is intact both lower extremities Integumentary two large cervical lymph nodes present non tender. chronic . Neuro No focal motor neuro deficits but mentation is slow and chronically so. Musculoskeletal weak left lower extremity from previous cva. The right lower limb ifunction has returned to normal function. Labs, Most Recent- Laboratory Results Past 24 Hrs 01/28/17 05:50: Anion Gap 12.0, BUN/Creatinine Ratio 21, Basophils # (Auto) 0.1, Basophils (%) ( Auto) 1, Blood Urea Nitrogen 18, Calcium Level 8.7, Carbon Dioxide Level 28, Chloride Level 106, Creatinine 0.85, Eosinophils # (Auto) 0.2, Eosinophils (%) ( Auto) 3, Estimat Glomerular Filtration Rate 110.9, Estimated GFR (Non- 91.6, Glucose Level 193, Hematocrit 37.90, Hemoglobin 12.6, Lymphocytes # (Auto) 2.6, Lymphocytes (%) (Auto) 33, Magnesium Level 2.1, Mean Corpuscular Hemoglobin 27.3, Mean Corpuscular Hemoglobin Concent 33.2, Mean Corpuscular Volume 82, Mean Platelet Volume 11.5, Monocytes # (Auto) 0.7, Monocytes (%) (Auto) 9, Neutrophils # (Auto) 4.3, Neutrophils (%) (Auto) 54, Phosphorus Level 4.4, Platelet Count 175, Potassium Level 3.8, Red Blood Count 4.61, Red Cell Distribution Width 12.6, Sodium Level 142, White Blood Count 7.86 24 Hr Result Diagram CBC BMP Last 24 Hrs 01/28/17 05:50 Assessment monitor glucose and to increase daily activity with ppt to burn more calories. Plan as above continue to titrate insulin this 24 hrs and then take 1/2 total and begi ac cover. RADHA HSIEH DO January 28, 2017 08:42
[2017-01-28] MEDS: lisINopril 10 MG (PRINIVIL) TABLET PO SCH (09:04)
[2017-01-28] MEDS: ASPIRIN 81 MG CHEW (LOW-DOSE) PO SCH (09:04)
[2017-01-28] MEDS: NS FLUSH 3 ML DAILY IV SCH (09:06)
--- NOTE | 2017-01-28 12:03 | OT Daily Note Inpatient (E) ---
OT Daily Treatment Service Date/Time 01/28/17, 11:56 Primary Diagnosis: (1) TIA (transient ischemic attack) ICD Code: G45.9 Treatment Diagnosis: (1) Weakness ICD Code: R53.1 Onset Date: 01/27/17 Start of Care Date: January 28, 2017 Precaution/Isolation: Standard Precautions Fall Level: High Risk 51 or greater Resuscitation Status: Full Code Current Activity: Agrees to participate, Up in chair Pt states he wants to learn how to take better care of himself Oxygen Needed: Room air O2 liters/minute: 0 Current Function Assessment Mental Status Mental Status: Alert, Appropriate, Cooperative Cognition Attention: Intact Memory: Intact Safety/Judgement: Intact Visual/Perceptual Skills Glassess: No Hearing: Impaired Hand Dominance Hand Dominance: Right Education/Assessment Education Provided: Home management/safety (Pt education provided for diabetes for sugar goals, symptoms, problems, diet, excercise with hand out provided. consulted with dietian for out pt therpy.) Education Evalution: Demonstrate understanding, Family included, Needs reinforcement Readiness to Learn: Good Treatment Tolerance: Brissa trmnt w/o complaints Rehabilitation Potential: Good Pt very receptive to diabetes education and states he is ready to make lifestyle changes. POC Plan of Care Problems Identified: ADLs, Balance, Lt UE Strength, Rt UE Strength, Safety Awareness, Sensation Plan: Evaluation-OT, ADL/Self Care Management, Therapy Exercises, Therapy Activities, Pt/Family/Staff Education Frequency of OT: Five times weekly Duration of OT: Other Therapy to Include: ADL training, Balance with ADLs, Pt/family education, Therapeutic activities, UE strengthing Discharge Recommendations: Home Independently (With significant other) Pt. Aware of Dx and Prognosis: Yes Pt. Aware of Risk & Benefit: Yes Goals: Discussed with patient Short Term Goals STG Time Frame: 2 Days Will Perform Grooming: With Setup/SBA Will Dress Upper Extremity: With Setup/SBA Will Dress Lower Extremity: With Setup/SBA Will Perform Funct Transfer: With Setup/SBA STG #1 Pt will participate in 15 min of ther-ex with 5 or less rest breaks. Snf Goals LTG Time Frame: 4 Days Will Dress Upper Extremity: Independently Will Dress Lower Extremity: Independently Will do Tub/Shower Transfer: Independently Will Bathe Self: Independently Will do Toilet Transfers: Independently Will do Toilieting: Independently LTG # 1 Pt will participate in 5 minute functional standing activity with demonstration of good balance and modified independence. LTG # 2 Pt will independently verbalize strategies to improve performance with medication management. CPT/G Codes Time In: 1008 Time Out: 1041 Total Minutes: 33 CPT Codes: 62944 ADL EA Evy Echols January 28, 2017 12:03
--- NOTE | 2017-01-28 12:05 | NUR ---
Nutrition Follow Up: Visited with pt. re: diabetes care. He stated he went on vacation and "fell off the grid," avoiding any semblance of diabetes self-management or any medication. He acknowledged feeling sick when his blood sugar is very high, and stated he "doesn't want to end up like this again." He was given educational materials on blood sugar goals and simple diet instructions, though pt. stated he was familiar with carbs and watching his diet. I provided my contact info. for outpatient nutrition counseling if he is interested after D/C. Pt. continues to be on a small diabetic diet, and reports being hungry. He also stated he is getting restless and wishes to go home soon. Weight today: 209.6#/95.3 kg--this is down 1.6# from yesterday Labs: glucose 163-296 1. Continue to recommend medium diabetic diet instead of small to better meet patients nutritional needs and address hunger. Emphasize protein as well.
--- NOTE | 2017-01-28 16:26 | Physical Therapy Evaluation(E) ---
Plan of Care Plan: Balance, Functional Strengthening, Gait & Transfer Training, Neuro Re- Education, Progressive Ambulation, Strengthening, Stroke Rehab, Transfer Training, Therapy Excercise Discharge Recommendations: TCU/Skilled NH (Patient would benefit from additional therapy services secondary to patient impaired gait sequencing bilateral lower extremity weakness, and high fall risk. ) Aware of Dx and Prognosis: Yes Aware of Risk & Benefit: Yes To be Seen: Daily Wednesday-Wednesday Initial Evaluation Service Date/Time 01/28/17, 16:20 Primary Diagnosis: (1) TIA (transient ischemic attack) ICD Code: G45.9 Treatment Diagnosis: (1) Hypertensive encephalopathy ICD Code: I67.4 (2) Altered mental status ICD Code: R41.82 (3) TIA (transient ischemic attack) ICD Code: G45.9 (4) Weakness ICD Code: R53.1 Onset Date: 01/26/17 Start of Care Date: January 28, 2017 Resuscitation Status: Full Code Precaution/Isolation: Standard Precautions Fall Level: High Risk 51 or greater Initial Assessment Reason for Rehab: Increase Mobility, Increase Strength, Increase Balance, Increase Transfers, Increase Endurance Medical History: Other (L sided CVA, HTN, DM2, dyslipidemia ) Pain Level: 0 Rehabilitation Potential: Fair (Patient is willing to participate in PT) Assistive Device: FWW Distance Walked in Feet 16 feet Assist: Min Assist/Contact Guard Gait Description: Unsteady, Decreased Joycelyn, Slow, Uneven Weight Shift, Ataxic Gait Limitations: Ataxia, Decreased Balance ROM/Strength Hip Mobility: Right Hip Strength: 3+ Left Hip Strength: 1 Knee Flexion Mobility: Right Knee Flexion Strength: 3- Left Knee Flexion Strength: 2 Knee Extension Mobility: Right Knee Extension Strength: 4+ Left Knee Extension Strength: 2+ Ankle Mobility: Right Ankle Strength: 4 Left Ankle Strength: 2- Assessment/Goals Initial Transfer Assessment Rolling: Supervision or setup Sit-Supine: Contact Guard Assist Sitting Edge of Bed: Supervision or setup Supine-Sit: Contact Guard Assist Sit-Stand from Bed: Minimal Assistance Stand-Sit: Minimal Assistance Ambulation: Minimal Assistance Distance Walked in Feet 16 feet with unsteady gait and slow gait processing. Transfer Short Term Goals Rolling: Modified [place] Sit-Supine: Modified [place] Sitting Edge of Bed: Modified [place] Supine-Sit: Modified [place] Sit-Stand from bed: Modified [place] Stand-Sit: Modified [place] Pivot Transfer: Not Assessed/NA Ambulation: Supervision or setup Distance to Walk in Feet 50 feet with FWW. Coding Time In: 1450 Time Out: 1510 Total Minutes: 20 Charges: 58002 Eval< 20 min JERARDO GANNON PT January 28, 2017 16:26
--- NOTE | 2017-01-28 18:03 | NUR ---
Pt has denied needs this shift. Resting in chair at this time. SL intact. Denies pain. Skin warm, dry, intact. Resprs nonlabored, even on RA. Pt ambulates well with SBA and walker. Tolerates walker better than cane at this time. Pt denies needs.
[2017-01-28] MEDS: ATORVASTATIN 10 MG (LIPITOR) TABLET PO SCH (20:50)
[2017-01-28] MEDS: INSULIN GLARGINE 1 UNIT/0.01ML (LANTUS) DOSE SC SCH (20:51)
[2017-01-29 04:01] VITALS: BP 152/68
--- NOTE | 2017-01-29 06:10 | NUR ---
Pt rests well throughout the night. Denies pain. SL intact. Independent in room. Calls for assist as needed.
[2017-01-29] MEDS: INSULIN LISPRO 1 UNIT/0.01 ML (HUMALOG) DOSE SC SCH ×4 (06:13→21:14)
[2017-01-29] MEDS: PANTOPRAZOLE 40 MG (PROTONIX) TAB PO SCH (06:13)
[2017-01-29 06:45] LABS: ANION GAP 12.1 MEQ/L (3-15); MAGNESIUM* 2.1 mg/dL (1.6-2.3)
[2017-01-29] MEDS ORDERED: PANT40TA3 PO (07:54)
--- NOTE | 2017-01-29 07:57 | Discharge Instructions (E) ---
Discharge Instructions Instructions Continue medications as prescribed. [facility] Your hgbA1c was 12.1 and it should be much lower at 6.0 Contact the [facility] for problems or concerns Activity Instructions as tolerates Doctor's Appointment appt with the [facility] next week Discharge Diet: Carbohydrate controlled Melissa Childers APRN January 29, 2017 07:57
[2017-01-29] MEDS ORDERED: LSNP10T PO (08:00)
[2017-01-29 08:19] VITALS: BP 176/92
[2017-01-29] MEDS ORDERED: INSULIN GLARGINE 1 UNIT/0.01ML (LANTUS) DOSE SC ONE (08:20)
--- NOTE | 2017-01-29 08:30 | NUR ---
Pt sitting up on edge of bed eating breakfast. Tells Nichol Childers APRN that he is ready to go home. Skin warm, dry, intact. Resprs nonlabored, even on RA. Independent in room with walker. Denies pain. SL intact. Denies needs.
[2017-01-29] MEDS: ASPIRIN 81 MG CHEW (LOW-DOSE) PO SCH (08:34)
[2017-01-29] MEDS: lisINopril 10 MG (PRINIVIL) TABLET PO SCH (08:34)
[2017-01-29] MEDS: NS FLUSH 3 ML DAILY IV SCH (09:00)
--- NOTE | 2017-01-29 10:33 | Progress Note (E) ---
Progress Note S: Awake and alert- was wanting to go home today but B/P was up and BS needing more Lantus O: I & O Past 24 hrs 01/29/17 07:00 Intake Total 1270 ml Output Total 1000 ml Balance 270 ml Intake Oral 1270 ml Output Urine Total 1000 ml Vital Signs Date Time Temp Pulse Resp B/P Pulse Ox O2 Delivery O2 Flow Rate FiO2 01/29/17 08:39 102 01/29/17 08:19 97.4 20 176/92 100 Room air 01/28/17 15:27 0.00 Awake and alert in NAD- up to chair doing better -oriented x 4- wants to go home EOMI, sclera non icteric, neck supple, no jvd Lungs diminished but clear Heart RRR no murmur abd is soft non tender per nursing ext with tr edema neuro examination strength left upper 4/5, left lower 2/5 right upper 4pluts/5 right lower 4/5 sensor grossly intact symmetrical Laboratory Results Past 24 Hrs 01/27/17 01:45: Alanine Aminotransferase (ALT/SGPT) 15, Albumin 4.4, Albumin/Globulin Ratio 1.189, Alkaline Phosphatase 127, Anion Gap 14.1, Aspartate Amino Transf (AST/ SGOT) 12, BUN/Creatinine Ratio 13, Basophils # (Auto) 0.0, Basophils (%) (Auto) 0, Blood Urea Nitrogen 11, Calcium Level 9.4, Calcium/Ionized Calcium Ratio 3.8 , Calculated Osmolality 285, Carbon Dioxide Level 27, Chloride Level 104, Creatine Kinase MB 0.9, Creatinine 0.85, Eosinophils # (Auto) 0.1, Eosinophils ( %) (Auto) 1, Estimat Glomerular Filtration Rate 110.9, Estimated GFR (Non- 91.6, Glucose Level 315, Hematocrit 39.60, Hemoglobin 13.2, Hemoglobin A1c 12.1, Lymphocytes # (Auto) 2.1, Lymphocytes (%) (Auto) 23, Mean Corpuscular Hemoglobin 27.0, Mean Corpuscular Hemoglobin Concent 33.3, Mean Corpuscular Volume 81, Mean Platelet Volume 11.9, Monocytes # (Auto) 0.9, Monocytes (%) (Auto) 10, TI-Bnm-R-Type Natriuretic Peptide 82, Neutrophils # ( Auto) 5.9, Neutrophils (%) (Auto) 65, Platelet Count 192, Potassium Level 3.4, Prothromb Time International Ratio 1.1, Prothrombin Time 11.9, Red Blood Count 4.88, Red Cell Distribution Width 12.6, Serum Alcohol < 10.0, Sodium Level 142, Thyroid Stimulating Hormone (TSH) 0.82, Total Bilirubin 0.6, Total Creatine Kinase 77, Total Protein 8.1, Troponin I 0.012, White Blood Count 9.05 01/27/17 06:40: Anion Gap 14.3, BUN/Creatinine Ratio 16, Basophils # (Auto) 0.0, Basophils (%) ( Auto) 0, Blood Urea Nitrogen 12, Calcium Level 9.2, Carbon Dioxide Level 28, Chloride Level 107, Creatinine 0.76, Eosinophils # (Auto) 0.2, Eosinophils (%) ( Auto) 2, Estimat Glomerular Filtration Rate 126.2, Estimated GFR (Non- 104.3, Glucose Level 145, Hematocrit 38.60, Hemoglobin 12.9, Lymphocytes # (Auto) 2.1, Lymphocytes (%) (Auto) 23, Mean Corpuscular Hemoglobin 27.3, Mean Corpuscular Hemoglobin Concent 33.4, Mean Corpuscular Volume 82, Mean Platelet Volume 11.9, Monocytes # (Auto) 0.9, Monocytes (%) ( Auto) 10, Neutrophils # (Auto) 5.9, Neutrophils (%) (Auto) 65, Platelet Count 194, Potassium Level 3.5, Red Blood Count 4.72, Red Cell Distribution Width 12.6 , Sodium Level 146, White Blood Count 9.03, Cholesterol Level 200, Cholesterol/ HDL Ratio 5.0, HDL Cholesterol 40, LDL Cholesterol, Calculated 139, Triglycerides Level 107, VLDL Cholesterol, Calculated 21 CT head without acute changes CXR no acute process Impression/Plan 1. TIA acute- right lower extremity affected. secondary to hypertension , - Carotid US done - no acute stenosis and Echo done and is pending. Neuro Checks have been unremarkable. 2. HTN emergency- improved but will increase Lisinopril 3. DM2 - uncontrolled- poor control as represented by elevated A1C. 12.1 4. Hypokalemia - replaced 5. dyslipidemia chronic POA: continue statin and check fasting lipid panel 6. DVT ppx; SCD Code Status- Full Code P: Will monitor him another day- and likely home tomorrow. closely. Melissa Childers POWER ENGINEER January 29, 2017 10:33
[2017-01-29 11:30] VITALS: BP 127/71
[2017-01-29 16:01] VITALS: BP 159/85
--- NOTE | 2017-01-29 16:25 | OT Daily Note Inpatient (E) ---
OT Daily Treatment Service Date/Time 01/29/17, 16:25 Primary Diagnosis: (1) TIA (transient ischemic attack) ICD Code: G45.9 Treatment Diagnosis: (1) Weakness ICD Code: R53.1 Onset Date: 01/27/17 Start of Care Date: January 28, 2017 Precaution/Isolation: Standard Precautions Fall Level: High Risk 51 or greater Resuscitation Status: Full Code Pt reports just resting. Agreeable to participate in therapy. Pain Level: 0 Oxygen Needed: Room air O2 liters/minute: 0 Current Function Assessment Cognition Attention: Intact Memory: Intact Safety/Judgement: Intact Visual/Perceptual Skills Glassess: No Hearing: Impaired Hand Dominance Hand Dominance: Right Treatments Strengthening Exercise Upper Extremity Strength Exerc : Comment Pt completed bed mobility with modified independence. Completed transfer with CGA. Noted- pt demonstrated slower movement with functional mobility. Sitting in chair, pt participated in BUE strengthening with use of green theraband to increase strength for functional transfers and ADLs. Pt completed 5 x 15 exercises. Pt completed transfer back to bed with CGA. Completed bed mobility with modified independence. Education/Assessment Education Provided: Home management/safety (Pt education provided for diabetes for sugar goals, symptoms, problems, diet, excercise with hand out provided. consulted with dietian for out pt therpy.) Education Evalution: Demonstrate understanding, Family included, Needs reinforcement Readiness to Learn: Good Treatment Tolerance: Brissa trmnt w/o complaints Rehabilitation Potential: Good Pt requires CGA during functional mobility. POC Plan of Care Problems Identified: ADLs, Balance, Lt UE Strength, Rt UE Strength, Safety Awareness, Sensation Plan: Evaluation-OT, ADL/Self Care Management, Therapy Exercises, Therapy Activities, Pt/Family/Staff Education Frequency of OT: Five times weekly Duration of OT: Other Therapy to Include: ADL training, Balance with ADLs, Pt/family education, Therapeutic activities, UE strengthing Discharge Recommendations: TCU/Skilled NH Pt. Aware of Dx and Prognosis: Yes Pt. Aware of Risk & Benefit: Yes Goals: Discussed with patient Short Term Goals STG Time Frame: 2 Days Will Perform Grooming: With Setup/SBA Will Dress Upper Extremity: With Setup/SBA Will Dress Lower Extremity: With Setup/SBA Will Perform Funct Transfer: With Setup/SBA STG #1 Pt will participate in 15 min of ther-ex with 5 or less rest breaks. [employer] Super[employer] Goals LTG Time Frame: 4 Days Will Dress Upper Extremity: Independently Will Dress Lower Extremity: Independently Will do Tub/Shower Transfer: Independently Will Bathe Self: Independently Will do Toilet Transfers: Independently Will do Toilieting: Independently LTG # 1 Pt will participate in 5 minute functional standing activity with demonstration of good balance and modified independence. LTG # 2 Pt will independently verbalize strategies to improve performance with medication management. CPT/G Codes Time In: 14:41 Time Out: 14:58 Total Minutes: 17 CPT Codes: 16501 Exercise Ther (09/29 TE) DOMINIC LAM OT January 29, 2017 16:25
--- NOTE | 2017-01-29 16:33 | PT Daily Note Inpatient (E) ---
PT Daily Treatment Service Date/Time 01/29/17, 16:25 Medical Diagnosis: (1) TIA (transient ischemic attack) ICD Code: G45.9 Physical Therapy: (1) Hypertensive encephalopathy ICD Code: I67.4 (2) Altered mental status ICD Code: R41.82 (3) TIA (transient ischemic attack) ICD Code: G45.9 (4) Weakness ICD Code: R53.1 Precaution/Isolation: Standard Precautions Resuscitation Status: Full Code Fall Level: High Risk 51 or greater Subjective Pt resting in bed. Agrees to therapy. Oxygen Delivery: Room air O2 liters/minute: 0 Treatments Sit, Stand, Supine: Supine Extremity: Both Lower Extremity Assistance: AAROM (on left Le), AROM (on right LE) Repetition: 1 x 20 Exercise: AP, QS, Heel Slides, Hip Abduction, SLR, Bridge Transfers Sitting Edge of Bed: Complete [place] Supine-Sit: Supervision or setup Sit-Stand from bed: Contact Guard Assist Stand-Sit: Contact Guard Assist Gait Ambulation: Contact Guard Assist Distance Walked: 100 feet Pt's body would spasm at random times causing unsteadiness but pt was able to recover every time with no loss of balance. Pt also dragged left foot during swing phase. Assistive Device: FWW Gait Description: Unsteady, Decreased Joycelyn, Slow, Shuffling, Antalgic Gait, Step-To Gait Pattern Gait Training: Limitations: Fatigue Education/Plan Assessment Pt did fairly well with therapy. Pt moves very slowly and appears unsteady but never actually lost his balance. Pt would benefit from further therapy after discharge from hospital. Plan Patient will be seen: Daily Wednesday-Wednesday Coding Time In: 15:55 Time Out: 16:30 Total Minutes: 35 Charges: 69703 Exercise Therp 15 m (20 minutes), 69872 Gait Training 15 mi (15 minutes) Donal Canchola MILKING MACHINE TECHNICIAN January 29, 2017 16:33
--- NOTE | 2017-01-29 18:35 | NUR ---
Pt denies needs this shift. Ambulated in halls with PT with walker and gait belt. Gait is very slow, L foot drags somewhat. Pt states it has been that way for a long time. Skin warm, dry, intact. Resprs nonlabored, even on RA. Denies needs. Call light within reach.
[2017-01-29 19:44] VITALS: BP 146/78
[2017-01-29] MEDS: ATORVASTATIN 10 MG (LIPITOR) TABLET PO SCH (21:13)
[2017-01-29] MEDS: INSULIN GLARGINE 1 UNIT/0.01ML (LANTUS) DOSE SC SCH (21:15)
--- NOTE | 2017-01-29 21:15 | NUR ---
Accucheck this evening is 239; Humalog 4 units given per sliding scale insulin; Lantus 20 units per scheduled order. Pt. denies discomfort; resting in bed with even and unlabored respirations on room air; watching a movie. Pt. conversational with this nurse; pleasant and cooperative. General safety issues discussed; pt. utilizes walker or cane to ambulate to and fro bathroom. Bed alarm on for HS. Call light and H2O within reach.
[2017-01-30] VITALS: BP 130/62
--- NOTE | 2017-01-30 01:00 | NUR ---
Pt. resting quietly on left side; resp are even and unlabored on room air; appears to be in no distress.
[2017-01-30 03:56] VITALS: BP 132/74
[2017-01-30] MEDS: PANTOPRAZOLE 40 MG (PROTONIX) TAB PO SCH (06:26)
--- NOTE | 2017-01-30 06:29 | NUR ---
Accucheck is 143 this morning; sliding scale insulin not required. Pt. takes PO Protonix; states he slept well; denies discomfort. Pt. ambulates slowly with use of cane; left lower extremity weakness noted. Call light and H2O within reach.
[2017-01-30 06:35] LABS: ANION GAP 12.2 MEQ/L (3-15); MAGNESIUM* 2.1 mg/dL (1.6-2.3)
[2017-01-30] MEDS: INSULIN LISPRO 1 UNIT/0.01 ML (HUMALOG) DOSE SC SCH ×2 (06:36→11:30)
--- NOTE | 2017-01-30 07:25 | NUR ---
Patient sitting up in recliner upon shift assessment. Alert and oriented X3. Neuro WNL. Hand geographical historian equal. Denies pain, SOA, right leg weakness, or other distress. States "I am waiting for my home pass because I am back to normal". HR RRR. Lung sounds CTAB. Updated on plan of care for shift. Call light in reach.
[2017-01-30 08:00] VITALS: BP 166/67
[2017-01-30] MEDS: lisINopril 10 MG (PRINIVIL) TABLET PO SCH (08:22)
[2017-01-30] MEDS: ASPIRIN 81 MG CHEW (LOW-DOSE) PO SCH (08:22)
[2017-01-30] MEDS: NS FLUSH 3 ML DAILY IV SCH (08:22)
--- NOTE | 2017-01-30 09:33 | PT Daily Note Inpatient (E) ---
PT Daily Treatment Service Date/Time 01/30/17, 09:24 Medical Diagnosis: (1) TIA (transient ischemic attack) ICD Code: G45.9 Physical Therapy: (1) Hypertensive encephalopathy ICD Code: I67.4 (2) Altered mental status ICD Code: R41.82 (3) TIA (transient ischemic attack) ICD Code: G45.9 (4) Weakness ICD Code: R53.1 Precaution/Isolation: Standard Precautions Resuscitation Status: Full Code Fall Level: High Risk 51 or greater Subjective Pt agrees to PT interventions and denies pain. Pain Level: 0 Oxygen Delivery: Room air O2 liters/minute: 0 Treatments Sit, Stand, Supine: Sitting Assistance: AAROM, AROM Comment PT has pt perform seated therex, both AROM and AAROM to help improve strength in diana LEs, needed for gait stability and functional mobility. AROM on RLE 1x10 , AAROM and AROM on LLE 1x10. PT also has pt perform RROM hip abduction and hip adduction w/ manual resistance 1x10 diana. Repetition: 1 x 10 Comment Pt needs encouragement during therex to perform exercises and to help motivate pt to help improve function and strength. Exercise: AP, Hip Abduction, Hip Adduction, LAQ, Hip Flexion Transfers Sit-Stand from bed: Contact Guard Assist Stand-Sit: Contact Guard Assist Gait Ambulation: Contact Guard Assist (Pt ambulates 100' tp 125' w/ FWW on one occasion w/ CGA. At times pt only requires SBA, but pt has spontaneus mm contraction which makes pt appear to lose his balance, but he is able to correct. Pt gait is slow and cues required to progress gait and to progress LLE. Pt then ambulates another 30' w/ FWW from room to shower w/ SBA. Pt sitting in shower and PT notifies VAZQUEZ Stout that PT session has concluded. TELEVISION INSTALLER HELPER to give pt a bath at this time. ) Weight Bearing Status: Full Assistive Device: FWW (PT recommends continued use of FWW) Gait Assist: Min Assist/Contact Guard (See comment w/ ambulation. ) Gait Description: Decreased Joycelyn, Slow, Short Step Length Gait Training: Limitations: Fatigue, Ataxia Education/Plan Education Education Needs: Use of Devices/Equipment Assessment Pt needs encouragement and motivation as well as education on the importance of performing exercises to help improve strength and maintain strength he already has so that he does not lose function. Plan Patient will be seen: Daily Wednesday-Wednesday Coding Time In: 08:55 Time Out: 09:20 Total Minutes: 25 Charges: 51099 Exercise Therp 15 m (TX 09/22 to help improve strength in diana LEs. ), 92715 Ther Activity (TA 09/27 to help improve function and mobility and activity tolerance. ) CHEPE MORALES PT January 30, 2017 09:33
[2017-01-30] MEDS ORDERED: INSU100V32 SC (11:13)
[2017-01-30 11:25] VITALS: BP 143/75
--- NOTE | 2017-01-30 11:33 | NUR ---
Discharge order received. IV discontinued with catheter intact. No redness or swelling noted at insertion site. Instructions provided to patient with verbal and written understanding expressed.
--- NOTE | 2017-01-30 11:55 | NUR ---
Patient discharged via wheelchair to private car accompanied by ORDAINED MINISTER. All home medications returned to patient from locked medication room. No further needs.
--- NOTE | 2017-02-01 08:45 | Discharge Summary (E FT) ---
Discharge Summary (E FT) Admit Date January 27, 2017 at 02:51 Discharge Date January 30, 2017 at 11:56 Admitting Provider Maximino Esteban MD Primary Care Provider Attending Provider Maximino Esteban MD Consulting Provider Hospital Course Summary CC: right leg weakness HPI: Patient is a 61 y/o male who has a history of a prior left sided CVA. The patient admits to medication non compliance and has not been taking his diabetic medications or anti hypertensive medications for the past several weeks. The patient saw the [place] [facility] on 01/15 and his medications were re started. He has not received them in the mail yet. 2 hours prior to arrival to the ED the patient had onset of right leg weakness. The patient states that he felt as if he were having a stroke. Upon arrival to the ED his symptoms were resolved per his report. The patient has significantly hypertensive and was treated with lopressor IV. The CT head was unremarkable as was his lab work. At this time the patient will be admitted into the ICU for further management of his hypertensive emergency with TIA. A review of the medical records indicate that the patient had a very similar event in 2011. Vital Signs Date Time Temp Pulse Resp B/P Pulse Ox O2 Delivery O2 Flow Rate FiO2 01/30/17 11:25 97.0 83 18 143/75 Room air 01/30/17 08:00 98 01/28/17 15:27 0.00 neck supple, no jvd Lungs diminished but clear Heart RRR no murmur abd is soft non tender per nursing ext with tr edema neuro examination strength left upper 4/5, left lower 2/5 right upper 4pluts/5 right lower 4/5 sensor grossly intact symmetrical Laboratory Results Past 24 Hrs 01/27/17 01:45: Alanine Aminotransferase (ALT/SGPT) 15, Albumin 4.4, Albumin/Globulin Ratio 1.189, Alkaline Phosphatase 127, Anion Gap 14.1, Aspartate Amino Transf (AST/ SGOT) 12, BUN/Creatinine Ratio 13, Basophils # (Auto) 0.0, Basophils (%) (Auto) 0, Blood Urea Nitrogen 11, Calcium Level 9.4, Calcium/Ionized Calcium Ratio 3.8 , Calculated Osmolality 285, Carbon Dioxide Level 27, Chloride Level 104, Creatine Kinase MB 0.9, Creatinine 0.85, Eosinophils # (Auto) 0.1, Eosinophils ( %) (Auto) 1, Estimat Glomerular Filtration Rate 110.9, Estimated GFR (Non- 91.6, Glucose Level 315, Hematocrit 39.60, Hemoglobin 13.2, Hemoglobin A1c 12.1, Lymphocytes # (Auto) 2.1, Lymphocytes (%) (Auto) 23, Mean Corpuscular Hemoglobin 27.0, Mean Corpuscular Hemoglobin Concent 33.3, Mean Corpuscular Volume 81, Mean Platelet Volume 11.9, Monocytes # (Auto) 0.9, Monocytes (%) (Auto) 10, FC-Qyx-V-Type Natriuretic Peptide 82, Neutrophils # ( Auto) 5.9, Neutrophils (%) (Auto) 65, Platelet Count 192, Potassium Level 3.4, Prothromb Time International Ratio 1.1, Prothrombin Time 11.9, Red Blood Count 4.88, Red Cell Distribution Width 12.6, Serum Alcohol < 10.0, Sodium Level 142, Thyroid Stimulating Hormone (TSH) 0.82, Total Bilirubin 0.6, Total Creatine Kinase 77, Total Protein 8.1, Troponin I 0.012, White Blood Count 9.05 01/27/17 06:40: Anion Gap 14.3, BUN/Creatinine Ratio 16, Basophils # (Auto) 0.0, Basophils (%) ( Auto) 0, Blood Urea Nitrogen 12, Calcium Level 9.2, Carbon Dioxide Level 28, Chloride Level 107, Creatinine 0.76, Eosinophils # (Auto) 0.2, Eosinophils (%) ( Auto) 2, Estimat Glomerular Filtration Rate 126.2, Estimated GFR (Non- 104.3, Glucose Level 145, Hematocrit 38.60, Hemoglobin 12.9, Lymphocytes # (Auto) 2.1, Lymphocytes (%) (Auto) 23, Mean Corpuscular Hemoglobin 27.3, Mean Corpuscular Hemoglobin Concent 33.4, Mean Corpuscular Volume 82, Mean Platelet Volume 11.9, Monocytes # (Auto) 0.9, Monocytes (%) ( Auto) 10, Neutrophils # (Auto) 5.9, Neutrophils (%) (Auto) 65, Platelet Count 194, Potassium Level 3.5, Red Blood Count 4.72, Red Cell Distribution Width 12.6 , Sodium Level 146, White Blood Count 9.03, Cholesterol Level 200, Cholesterol/ HDL Ratio 5.0, HDL Cholesterol 40, LDL Cholesterol, Calculated 139, Triglycerides Level 107, VLDL Cholesterol, Calculated 21 CT head without acute changes Carotid Sono- no acute stenosis ECHO: Done CXR no acute process Impression/Plan 1. TIA acute- right lower extremity affected. secondary to hypertension , - Carotid US done - no acute stenosis and Echo done and is pending. Neuro Checks have been unremarkable. 2. HTN emergency- improved but will increase Lisinopril 3. DM2 - uncontrolled- poor control as represented by elevated A1C. 12.1- Lantus adjusted- needs Diabetic education- had while here in hospital 4. Hypokalemia - replaced 5. dyslipidemia chronic: continue statin and check fasting lipid panel He was wanting to go home on 01-29 but blood sugars still up and BP needed more adjustment He was able to be dc'd home on 01-30-17- [facility] [place] he can get his meds cheaper that way- declines any other therapy for home He was adamant to go home on 01-30-17- was feeling better and stronger- up walking about the unit and eating well. Discharge Disposition Home today with Girlfriend He declines any therapies for home New Medications: Insulin Glargine,Hum.rec.anlog (Lantus) 100 Unit/1 Ml Vial 20 UNIT SC HS #1 Ref 0 VIAL Lisinopril (Lisinopril) 10 Mg Tablet 20 MG PO DAILY #60 TAB Pantoprazole Sodium (Pantoprazole Sodium) 40 Mg Tablet.dr 40 MG PO DAILY@07 #30 TAB Continued Medications: Aspirin (Aspirin) 325 Mg Tab 325 MG PO DAILY TAB Atorvastatin Calcium (Atorvastatin Calcium) 40 Mg Tablet 20 MG PO HS TAB Glipizide (Glipizide) 10 Mg Tablet 10 MG PO BIDAC TAB Metformin HCl (Metformin HCl) 1,000 Mg Tablet 1000 MG PO BID WITH MEALS TAB Discontinued Medications: Insulin Detemir (Levemir) 100 Unit/1 Ml Vial 30 UNIT SC BID VIAL Lisinopril (Lisinopril) 20 Mg Tablet 10 MG PO DAILY TAB Follow up Instructions Continue medications as prescribed. [facility]. Your hgbA1c was 12.1 and it should be much lower at 6.0 Contact the [facility] for problems or concerns Copies to: End of Report . Melissa Childers APRN February 01, 2017 08:45
== END 2017-01-30 11:56 | disposition home or self-care (01) | DRG 69 ==
LOC: ED 01:07 → ICU 02:51 → MED/SURG 11:15
PROVIDERS: ADMIT Emergency Medicine; ATTEND Emergency Medicine
DX: G45.8 Other transient cerebral ischemic attacks and related syndromes (principal); I16.1 Hypertensive emergency; E87.6 Hypokalemia; E11.65 Type 2 diabetes mellitus with hyperglycemia; E78.5 Hyperlipidemia, unspecified; R53.1 Weakness; Z91.14 Patient's other noncompliance with medication regimen; Z79.4 Long term (current) use of insulin; Z86.73 Personal history of transient ischemic attack (TIA), and cerebral infarction without residual deficits
CPT/HCPCS: 36415; 70450; 71010; 80048; 80053; 80061; 80320; 82550; 82553; 83036; 83735; 83880; 84100; 84443; 84484; 85025; 85610; 93005; 93010; 93306; 93880; 96361; 96374; 99285